=== PATIENT | female | born 1970 | race African-American/Black ===

== ENCOUNTER 2017-03-07 16:35 | Emergency (ER) | payer OTHER ==
[~2017-03-07] VITALS: Ht 167.6 cm; Wt 90.0 kg
[2017-03-07] MEDS ORDERED: KETOROLAC 30MG/ML VIAL IM ONE (23:45)
[2017-03-07] MEDS ORDERED: ONDANSETRON 4MG ODT PO ONE (23:45)
[2017-03-07 23:59] LABS: BASOPHILS % 0.4 % (0.0-2.0); EOSINOPHILS % 0.5 % (0.0-5.0); HEMATOCRIT. 35.9 % (36.0-48.0); HEMOGLOBIN. 11.7 g/dL (12.0-16.0); LYMPHOCYTES % 30.9 % (20.0-50.0); MEAN CORPUSCULAR HEMOGLOBIN 27.5 pg (28.0-32.0); MEAN CORPUSCULAR VOLUME 84.4 fL (81.0-99.0); MEAN PLATELET VOLUME 8.6 fl (7.4-10.4); MONOCYTES % 4.3 % (2.0-8.0); NEUTROPHILS % 63.9 % (40.0-76.0); PLATELET 340 x1000/uL (130-400); RED BLOOD CELL COUNT 4.25 mill/uL (4.2-5.4); RED CELL DISTRIBUTION WIDTH 14.5 % (11.6-14.6)
[2017-03-08 00:07] LABS: INR 1.1; PROTHROMBIN TIME 11.4 sec (9.4-11.6)
[2017-03-08 00:15] LABS: CHLORIDE 106 mEq/L (98-107)
[2017-03-08 00:25] LABS: CARBON DIOXIDE 25 mEq/L (21-32)
[2017-03-08 04:30] VITALS: BP 120/77
[2017-03-08] MEDS ORDERED: TRAMADOL 50MG TABLET PO ONE (04:30)
== END 2017-03-08 04:35 | disposition home or self-care (01) ==
LOC: ER 16:53
DX: S06.9X9A Unspecified intracranial injury with loss of consciousness of unspecified duration, initial encounter (principal); S16.1XXA Strain of muscle, fascia and tendon at neck level, initial encounter; S20.212A Contusion of left front wall of thorax, initial encounter; S01.552A Open bite of oral cavity, initial encounter; S60.222A Contusion of left hand, initial encounter; V78.1XXA Passenger on bus injured in noncollision transport accident in nontraffic accident, initial encounter; Y93.89 Activity, other specified; Z91.81 History of falling; Y92.414 Local residential or business street as the place of occurrence of the external cause
CPT/HCPCS: 36415; 70450; 71010; 72125; 73130; 80053; 85025; 85610; 96372; 99285; J1885; Q0162